=== PATIENT | female | born 1950 | race Caucasian/White ===

== ENCOUNTER 2018-03-28 05:22 | Inpatient (IN) | payer OTHER ==
[2018-03-22 08:59] LABS: HEMATOCRIT 40.6 % (37.0-47.0); HEMOGLOBIN 13.9 gm/dL (12.0-15.0); MCH 29.4 pg (26.0-34.0); MCHC 34.1 g/dL (28.0-37.0); MCV 86.1 fL (80.0-100.0); RBC 4.72 mil/uL (4.20-5.00); RDW 12.7 % (10.5-14.5); URINE BILIRUBIN NEGATIVE (Negative); URINE BLOOD NEGATIVE (Negative); URINE CLARITY CLEAR; URINE COLOR YELLOW; URINE GLUCOSE-RANDOM* NEGATIVE (Negative); URINE KETONES NEGATIVE (Negative); URINE NITRITE-REFLEX NEGATIVE (Negative); URINE PROTEIN (DIPSTICK) NEGATIVE (Negative); URINE SPECIFIC GRAVITY 1.015 (1.005-1.035); URINE UROBILINOGEN 0.2 E.U./dl (0.2-1.0); WBC 7.8 thou/uL (4.0-11.0)
[2018-03-22 09:00] LABS: URINE LEUKOCYTES-REFLEX TRACE (Negative)
[2018-03-22 09:12] LABS: PROTIME 10.7 Seconds (9.3-11.4)
[2018-03-22 09:17] LABS: ALBUMIN 3.8 g/dL (3.4-5.0); CALCIUM 9.1 mg/dL (8.5-10.1); CREATININE 0.7 mg/dL (0.6-1.0); POTASSIUM 4.3 mmol/L (3.5-5.1)
[~2018-03-28] VITALS: Ht 157.5 cm; Wt 74.4 kg
--- NOTE | ~2018-03-28 | EKG ---
[address] [address] ELECTROCARDIOGRAM REPORT Name: MARILEE HARDYYL Kristina Room #: [facility]#: [id number] Admission: Attend Phys: Jose A Riley MD Discharge: Date of : 50 Report #: [id number] THIS REPORT FOR: //name// [facility] Test Date: 2018-03-22 Test Time: 08:41:40 Pat Name: JASPAL HARDY Department: Room: Gender: Site Head: Nina CAMACHO : 1950 Requested By: Jose A Riley Order Number: [id number] MD: Dinh Lozano Measurements Intervals [place] Rate: 67 P: 18 NC: 155 QRS: 8 QRSD: 91 T: 31 QT: 385 QTc: 407 Interpretive Statements Sinus rhythm Normal tracing No previous ECG available for comparison Electronically Signed On 03-22-2018 15:40:09 CDT by Dinh Lozano [email or web address] <ELECTRONICALLY SIGNED> By: Dinh Lozano MD, [facility] 03/22/18 1540 [id number] [id number] Dinh Lozano MD, FACC /EPI
--- NOTE | ~2018-03-28 | O ---
[facility] [place] [address] OPERATIVE REPORT Name: JASPAL HARDY Room #: 419-P [facility] IN M.R.#: [id number] Admission: 03/28/18 Attend Phys: Jose A Riley MD Discharge: 03/31/18 Date of : 50 Report #: [id number] THIS REPORT FOR: //name// CC: [facility] DATE OF SERVICE: 03/28/2018 PREOPERATIVE DIAGNOSIS: Left knee osteoarthritis. POSTOPERATIVE DIAGNOSIS: Left knee osteoarthritis. PROCEDURE: Left total knee arthroplasty with Navio computerized assistance. SURGEON: Jose A Riley MD ASSOCIATE CREATIVE DIRECTOR: Charlene Padro PA-C INDICATIONS FOR ASSISTANCE: Throughout the case, extensive retraction and manipulation of the knee was required. This was afforded to me by my medical assistant ob gyn ANESTHESIA: LMA with an adductor canal block. IMPLANTS: [employer] size 5 narrow Legion cobalt chrome posterior stabilized femur, a size 3 tibia, a size 11 polyethylene and a size 32 patella. TOURNIQUET TIME: 72 minutes. ESTIMATED BLOOD LOSS: 25 mL. COMPLICATIONS: None. SPECIMENS: None. CONDITION UPON LEAVING THE OPERATING ROOM: Stable. INDICATIONS FOR PROCEDURE: The patient is a 68-year-old female with severe left knee osteoarthritis. She had failed conservative measures for this and after discussion with her, she elected for left total knee arthroplasty. DESCRIPTION OF PROCEDURE: Risks, benefits, alternatives and complications were discussed in detail with the patient including but not limited to risk of anesthesia, risk of damage to nerves, arteries and blood vessels, risk for infection and bleeding, risk for continued knee pain, and need for reoperation. Informed consent was obtained from the patient. The left knee was appropriately marked in the preoperative holding area. IV vancomycin was given for [address] [address] OPERATIVE REPORT Name: JASPAL HARDY Room #: 419-P [facility].#: [id number] Admission: 03/28/18 Attend Phys: Jose A Riley MD Discharge: 03/31/18 Date of : 50 Report #: [id number] preoperative antibiotics. She was brought to the operating room and placed in the supine position on the operating room table. LMA anesthesia was induced without complication. Tourniquet was placed on the left thigh. Left lower extremity was prepped and draped in normal sterile fashion. Timeout was performed properly identifying the patient and procedure as well as the instrumentation and implants. All in the operating room were in agreement. Left lower extremity was exsanguinated, tourniquet was inflated. Tourniquet time was 72 minutes. Standard midline approach to the knee was made with a 10 blade through the skin. Dissection was taken down sharply to the fascia and deep flaps were developed medially and laterally. A fresh 10 blade was used to make a medial parapatellar arthrotomy and the knee was inspected. There was extensive medial compartment osteoarthritis with moderate lateral and patellofemoral osteoarthritis. Anterior horns of the meniscus were removed sharply. Osteophytes were removed from the femur and tibia. ACL and PCL were removed sharply. Reference pins were then placed in the femur and tibia and data collection was then begun using the Navio computerized assistance. After data collection of the femur and the tibia, the plan was then made on the computer screen. A sized a 5 narrow femur and a size 3 tibia. The Navio bur was then used to make the distal femoral cut and a 4-in-1 cutting block for a size 5 femur was placed. Anterior, posterior and chamfer cuts were made. Tibial resection guide was then pinned in place using the Navio system and tibial resection was made. The remainder of the meniscus was removed with Bovie cautery. Flexion and extension gaps were checked and found to have good balance in flexion and extension. A size 3 tibial trial was placed and punched. A size 5 femoral trial was placed and the box cut was made. A post was placed and this was trialed with a size 9, size 10 and then a size 11 polyethylene, and size 11 had the best fit with good balance both manually as well as digitally using a Navio system. A 9 mm was taken off the posterior surface of the patella and a size 32 patellar button was placed. Knee was taken through range of motion, found to be stable, found to have good balance in flexion and extension both medially and laterally with good patellar tracking. Trial components were removed. Bony ends were thoroughly irrigated with normal saline. A final size 3 tibia, size 5 narrow cobalt chrome Legion posterior stabilized femur and a size 32 patella were cemented in place using standard cementation techniques. While the cement cured, a periarticular injection consisting of morphine, ropivacaine, epinephrine and Toradol was placed around the knee joint tissues. After the cement cured, the tourniquet was deflated. Hemostasis was obtained with Bovie cautery. A final size 11 polyethylene was placed. A gram of vancomycin was placed deep in the joint. The fascia was closed with 0 Vicryl, skin was closed with 2-0 Vicryl and 3-0 Monocryl. Dermabond and [place] dressing was applied. The patient tolerated this procedure well and went to recovery room under care of Anesthesia postoperatively. <ELECTRONICALLY SIGNED> By: Jose A Riley MD 04/01/18 0822 [id number] Jose A Riley MD /merary
[~2018-03-28 05:22] MED LIST: AMARYL4 MG PO; ATORVASTATIN CA40 MG PO; BIOTIN1000 MCG PO; METFORMIN HCL1000 MG PO
[2018-03-28 07:48] VITALS: BP 122/79
[2018-03-28 13:49] VITALS: BP 141/50
[2018-03-28 20:28] VITALS: BP 132/51
[2018-03-29 05:19] VITALS: BP 102/32
[2018-03-29 05:34] LABS: HEMATOCRIT 33.8 % (37.0-47.0); HEMOGLOBIN 11.1 gm/dL (12.0-15.0); MCH 28.5 pg (26.0-34.0); MCHC 32.8 g/dL (28.0-37.0); MCV 86.8 fL (80.0-100.0); RBC 3.9 mil/uL (4.20-5.00); RDW 12.7 % (10.5-14.5); WBC 16.3 thou/uL (4.0-11.0)
[2018-03-29 07:37] VITALS: BP 100/40
[2018-03-29 08:00] VITALS: BP 100/40
[2018-03-29 14:21] VITALS: BP 100/40
[2018-03-29 15:25] VITALS: BP 121/45
[2018-03-29 19:50] VITALS: BP 128/42
[2018-03-30] VITALS (7 sets, daily range): BP systolic 100–138; BP diastolic 34–40
[2018-03-30 05:42] LABS: HEMATOCRIT 29.4 % (37.0-47.0); HEMOGLOBIN 10.2 gm/dL (12.0-15.0); MCH 29.5 pg (26.0-34.0); MCHC 34.8 g/dL (28.0-37.0); MCV 84.8 fL (80.0-100.0); RBC 3.46 mil/uL (4.20-5.00); RDW 12.7 % (10.5-14.5); WBC 8.9 thou/uL (4.0-11.0)
[2018-03-31 04:10] VITALS: BP 11/32
[2018-03-31 06:01] LABS: HEMATOCRIT 28.5 % (37.0-47.0); HEMOGLOBIN 10.1 gm/dL (12.0-15.0); MCH 29.6 pg (26.0-34.0); MCHC 35.3 g/dL (28.0-37.0); MCV 83.7 fL (80.0-100.0); RBC 3.4 mil/uL (4.20-5.00); RDW 12.6 % (10.5-14.5); WBC 8.4 thou/uL (4.0-11.0)
[2018-03-31 07:50] VITALS: BP 113/68
[2018-03-31 08:00] VITALS: BP 113/68
[2018-03-31] MEDS ORDERED: NEURONTIN 300300 M1 PO (15:38)
[2018-03-31] MEDS ORDERED: MS CONTIN15 MG PO (15:39)
[2018-03-31] MEDS ORDERED: NORCO 5-325 TA1 EACH PO (15:40)
== END 2018-03-31 17:05 | disposition home or self-care (01) | DRG 470 ==
LOC: TBA 05:22 → 4E 05:22 → PRE 05:34 → OR 10:46 → EDSTATUS 10:50 → PRE 10:53 → 4E 12:58 → ENTRNSPT 03-31 16:36 → 4E 03-31 17:05
PROVIDERS: Orthopaedic Surgery
PROC: 0SRD0J9 Replacement of Left Knee Joint with Synthetic Substitute, Cemented, Open Approach (ICD-10-PCS; principal; 2018-03-28)
DX: M17.12 Unilateral primary osteoarthritis, left knee (principal); M54.16 Radiculopathy, lumbar region; Z88.1 Allergy status to other antibiotic agents; Z88.0 Allergy status to penicillin; Z88.2 Allergy status to sulfonamides; Z88.8 Allergy status to other drugs, medicaments and biological substances; Z79.899 Other long term (current) drug therapy
CPT/HCPCS: 10783; 50010; 50101; 50415; 50954; 51130; 51225; 51771; 53000; 53078; 53364; 54118; 56527; 56528; 57095; 57110; 57127; 62110; 62900; 70005